=== PATIENT | female | born 1975 | race Caucasian/White ===

== ENCOUNTER 2020-05-07 19:34 | Emergency (ER) | payer OTHER ==
[2020-05-07 19:59] VITALS: BP 136/83; PULSE 86; TEMP 98.2; BMI 24.7
[2020-05-07] MEDS ORDERED: AZITHROMYCIN 500 MG TABLET PO ONE (21:46)
[2020-05-07] MEDS ORDERED: AZITHROMYCIN 500 MG TABLET ONE (21:52)
== END 2020-05-07 21:57 | disposition home or self-care (01) ==
LOC: FER 19:34
DX: J18.9 Pneumonia, unspecified organism (principal)
CPT/HCPCS: 71045-TC-FY; 99284-25; C9803; U0003

== ENCOUNTER 2021-04-22 13:18 | Emergency (ER) | payer OTHER ==
[2021-04-22 13:39] VITALS: BP 124/73; PULSE 90; TEMP 99; BMI 23.0
[2021-04-22] MEDS ORDERED: ACETAMINOPHEN 325 MG TABLET (FP) PO ONE (14:19)
[2021-04-22] MEDS ORDERED: ACETAMINOPHEN 325 MG TABLET (FP) ONE (14:49)
[2021-04-22] MEDS ORDERED: ALBUTEROL SO4 HFA INHALER IH ONE ×2 (15:11→15:20)
== END 2021-04-22 15:59 | disposition home or self-care (01) ==
LOC: FER 13:18
PROC: 3E0F7GC Introduction of Other Therapeutic Substance into Respiratory Tract, Via Natural or Artificial Opening (ICD-10-PCS; principal; 2021-04-22)
DX: J40 Bronchitis, not specified as acute or chronic (principal)
CPT/HCPCS: 71046-TC-FY; 87804; 99284-25; C9803; U0003; U0005

== ENCOUNTER 2021-07-08 09:01 | Emergency (ER) | payer OTHER ==
[2021-07-08 09:11] VITALS: BMI 23.7
[2021-07-08] MEDS ORDERED: FAMOTIDINE 20 MG/50 ML IVPB 20 MG/50 ML MG IVPB ONE ×2 (09:39→10:19)
[2021-07-08] MEDS ORDERED: MAG HYDROX/AL HYDROX/SIMETH 30 ML UNIT-DOSE CUP PO ONE (09:39)
[2021-07-08] MEDS ORDERED: SUCRALFATE 1 GM TABLET (FP) PO ONE (09:39)
[2021-07-08] MEDS ORDERED: ONDANSETRON 4 MG/2 ML VIAL IVPUSH ONE (09:39)
[2021-07-08] MEDS ORDERED: ACETAMINOPHEN 1000 MG/100 ML BAG IVPB ONE (09:39)
[2021-07-08] MEDS ORDERED: ONDANSETRON 4 MG/2 ML VIAL ONE (10:19)
[2021-07-08] MEDS ORDERED: SUCRALFATE 1 GM/10 ML UNIT DOSE CUPS ONE (10:19)
[2021-07-08] MEDS ORDERED: ACETAMINOPHEN INJECTION 100 ML IVPB ONE (10:21)
[2021-07-08] MEDS ORDERED: MAG HYDROX/AL HYDROX/SIMETH 30 ML UNIT-DOSE CUP ONE (10:21)
[2021-07-08 10:49] LABS: ALBUMIN 3.9 g/dl (3.4-5.0); BILIRUBIN,TOTAL 0.9 mg/dl (0.2-1); CALCIUM 9.5 mg/dl (8.5-10); CREATININE 0.6 mg/dl (0.55-1.3); MAGNESIUM 1.8 mg/dL (1.8-2.4); TOT PROT 6.8 g/dl (6.4-8.2)
[2021-07-08 12:19] LABS: BASO % 0.3 % (0-2.0); EOS % 3.1 % (0-4.5); HEMATOCRIT 41.5 % (32.4-45.2); HEMOGLOBIN 13.7 GM/dL (10.7-15.3); LYMPH % 47.1 % (8-40); MCH 31.1 pg (25.7-33.7); MCHC 33.1 g/dl (32.0-36.0); MEAN CELL VOLUME 93.9 fl (80-96); MEAN PLT VOLUME 8.6 fl (7.5-11.1); MONO % 5.7 % (3.8-10.2); NEUT % 43.8 % (42.8-82.8); PLATELET COUNT 304 10^3/uL (134-434); RBC 4.42 M/mm3 (3.60-5.2); RDW 12.8 % (11.6-15.6); WHITE BLOOD COUNT 7.4 K/mm3 (4.0-10.0)
[2021-07-08 12:36] LABS: ACTIVATED PTT 31.1 SECONDS (25.2-36.5); INR 1.43 (0.83-1.09); PROTHROMBIN TIME (PATIENT) 16.5 SEC (9.7-13.0)
[2021-07-08 12:49] VITALS: BP 100/61; PULSE 73; TEMP 97.5
[2021-07-08] MEDS ORDERED: INSULIN (NOVOLOG) ASPART 100 UNITS/ML 10ML VIAL ONE (17:10)
== END 2021-07-08 14:14 | disposition home or self-care (01) ==
LOC: FER 09:01
PROC: 3E0333Z Introduction of Anti-inflammatory into Peripheral Vein, Percutaneous Approach (ICD-10-PCS; principal; 2021-07-08)
PROC: 3E033GC Introduction of Other Therapeutic Substance into Peripheral Vein, Percutaneous Approach (ICD-10-PCS; 2021-07-08)
PROC: 3E033GC Introduction of Other Therapeutic Substance into Peripheral Vein, Percutaneous Approach (ICD-10-PCS; 2021-07-08)
DX: K21.9 Gastro-esophageal reflux disease without esophagitis (principal)
CPT/HCPCS: 36415; 71046-TC-FY; 80053; 83735; 84484; 85025; 85610; 85730; 93005; 99285-25

== ENCOUNTER 2022-10-23 22:49 | Emergency (ER) | payer OTHER ==
[2022-10-23 23:16] VITALS: BP 113/86; PULSE 86; RESP 20; TEMP 97.9; BMI 23.7
== END 2022-10-24 00:22 | disposition home or self-care (01) ==
LOC: FER 22:49
DX: R07.89 Other chest pain (principal); R05.1 Acute cough
CPT/HCPCS: 71046-TC-FY; 99283-25

== ENCOUNTER 2023-03-28 21:48 | Emergency (ER) | payer OTHER ==
[2023-03-28 21:58] VITALS: BP 147/80; PULSE 100; RESP 16; TEMP 98.4; BMI 23.4
== END 2023-03-28 22:41 | disposition home or self-care (01) ==
LOC: FER 21:48
DX: R05.9 Cough, unspecified (principal); R09.81 Nasal congestion; M54.9 Dorsalgia, unspecified; J20.9 Acute bronchitis, unspecified; Z20.822 Contact with and (suspected) exposure to COVID-19
CPT/HCPCS: 0241U-QW; 71046-TC-FY; 99284-25